=== PATIENT | female | born 1940 | race African-American/Black ===

== ENCOUNTER 2018-04-15 07:53 | Emergency (ER) | payer OTHER ==
[~2018-04-15] VITALS: Ht 154.9 cm; Wt 54.4 kg
[2018-04-15] MEDS: SODIUM CHLORIDE 0.9% 1,000 ML IV ONE (08:30)
[2018-04-15] MEDS: SODIUM CHLORIDE 0.9% 1,000 ML IVB ONE (08:30)
[2018-04-15 09:45] LABS: Eosinophils # (auto) 0 uL; Hemoglobin 8.1 g/dL (12.2-16.2); Nucleated Red Blood Cells % 0.1 %
[2018-04-15 09:49] LABS: Basophils # (auto) 0 uL; Basophils % (auto) 0.3 % (0.0-2.0); Hematocrit 26.1 % (36.0-46.0); Lymphocytes # (auto) 1.8 uL; Lymphocytes % (auto) 10.6 % (10.0-50.0); Mean Corpuscular Hemoglobin 28.2 pg (28.0-32.0); Mean Corpuscular Hgb Conc. 30.9 g/dL (32.0-36.0); Mean Corpuscular Volume 91.2 fL (80.0-100.0); Monocytes # (auto) 1.2 uL; Neutrophils # (auto) 14.2 uL; Neutrophils % (auto) 82.1 % (37.0-80.0); Platelet Count (auto) 350 10^3/uL (140-450); Red Blood Cells 2.86 10^6/uL (4.0-5.20); Red Cell Distribution Width 17.2 % (11.8-14.3); White Blood Cell 17.3 10^3/uL (4.4-10.8)
[2018-04-15 10:03] LABS: Alanine Aminotransferase 9 U/L (13-56); Anion Gap 17 (5-15); Aspartate Aminotransferase 16 U/L (15-37); BUN/Creatinine Ratio 3.2; Blood Urea Nitrogen 11 mg/dL (7-18); Calcium 8.2 mg/dL (8.5-10.1); Carbon Dioxide 22 mmol/L (21-32); Chloride 94 mmol/L (98-107); GFR African American 17 mL/min; GFR Non-African American 14 mL/min; Glucose 194 mg/dL (74-106); Magnesium 1.8 mg/dL (1.6-2.6); Potassium 3.3 mmol/L (3.5-5.1); Sodium 133 mmol/L (136-145)
[2018-04-15] MEDS: MORPHINE SULFATE 4 MG/ML SYR/VIAL IV ONE (10:05)
[2018-04-15] MEDS: ONDANSETRON HCL 4 MG/2 ML VIAL IV ONE (10:06)
[2018-04-15 10:08] LABS: Alkaline Phosphatase 105 U/L (45-117); Bilirubin, Total 0.5 mg/dL (0.2-1.0); Total Protein 8.1 g/dL (6.4-8.2)
[2018-04-15 10:10] LABS: INR 1.21 (0.9-1.15); Partial Thromboplastin Time 40.1 sec (23.78-33.04); Prothrombin Time 12.8 sec (9.27-12.13)
[2018-04-15] MEDS: DILTIAZEM HCL 25 MG/5 ML VIAL IV ONE (10:27)
[2018-04-15] MEDS: POTASSIUM EFFERVESENT TAB 25 MEQ PO ONE (11:42)
[2018-04-15] MEDS: cefTRIAXone 1GM/50ML D5W 50 ML IV ONE (22:02)
[2018-04-15 23:57] VITALS: BP 118/30
== END 2018-04-16 00:10 | disposition short-term general hospital (02) ==
LOC: ER 08:04
CPT/HCPCS: 36415 ×2; 71045 ×2; 71250 ×2; 80053 ×2; 82962 ×2; 83735 ×2; 83880 ×2; 84443 ×2; 84484 ×2; 85025 ×2; 85379 ×2; 85610 ×2; 85730 ×2; 94761 ×2; 96361 ×2; 96365 ×2; 96375 ×2; 99291 ×2; J0696 ×2; J2270; J2405 ×2; J7030